=== PATIENT | male | born 1950 | race Caucasian/White ===

== ENCOUNTER 2018-12-21 14:05 | Day surgery (SDC) | payer MEDICARE, BC ==
[~2018-12-21] VITALS: Ht 180.3 cm; Wt 112.7 kg
[2018-12-21 14:12] LABS: HEMOGLOBIN 15.8 g/dL (13.5-17.5); MCH 33.3 pg (26.0-34.0); MCHC 35.1 g/dL (31.0-37.0); MCV 94.7 fL (80.0-100.0); MEAN PLATELET VOLUME 9.8 fL (7.4-10.4); RBC 4.75 10x6/uL (4.20-6.10); RDW 12.4 % (11.5-14.5); WBC 8.8 10x3/uL (4.8-10.8)
[2018-12-21] MEDS ORDERED: HCTZ25 MG (14:30)
[2018-12-21] MEDS ORDERED: COZAAR100 MG PO (14:32)
[2018-12-21] MEDS ORDERED: NORVASC5 MG PO (14:32)
[2018-12-21] MEDS ORDERED: SINGULAIR10 MG PO (14:33)
[2018-12-21] MEDS ORDERED: NEXIUM20 MG (14:34)
[2018-12-21 14:55] VITALS: BP 153/95; Ht 180.3 cm; Wt 112.7 kg
[2018-12-21] MEDS ORDERED: ZANTAC300 MG PO (16:46)
--- NOTE | 2018-12-21 17:10 | NUR ---
DISCHARGE INSTRUCTIONS REVIEWED WITH PATIENT AND SPOUSE, DISCHARGED HOME VIA WHEELCHAIR TO PRIVATE VEHICLE WITH SPOUSE
--- NOTE | 2018-12-22 12:20 | OP ---
PATIENT NAME: SULMA JEAN JR MEDICAL RECORD: [id number] :50 LOCATION:[facility] ADMISSION DATE: SURGEON: MICHELL BARRERA MD DATE OF OPERATION: 12/21/2018 REFERRING PHYSICIAN: Dr. Mary Jane Herron PROCEDURE: EGD with fecal microbial transplant. INDICATIONS: Mr. Jean is a delightful 68-year-old gentleman with history of short segment Hicks's esophagitis and colon polyps, who presents for outpatient fecal microbial transplant. He picked up a C. diff infection visiting a friend in [place]. He was first initially diagnosed with positive stool for CDT on 10/28/2017. He was initially treated with Flagyl for 10 days followed by vancomycin for 14 days and then again a repeat course of vancomycin for 14 days in November 2017 followed by vancomycin for 24 days in December 2017. He continues to have loose watery stool. He tends to have loose stools despite recurrent antibiotic treatment. He presents for outpatient fecal microbial transplant. PREMEDICATIONS: Total IV anesthesia (propofol 350 mg). INSTRUMENT: Olympus video colonoscope, pediatric. PROCEDURE AND FINDINGS: After receiving informed consent, Mr. Jean's posterior pharynx was anesthetized with Cetacaine spray, placed in left lateral decubitus position, and sedated as per anesthesia. After achieving adequate level of sedation, the colonoscope was introduced per orally and advanced into the jejunum up to 145 cm. Upper GI findings include short segment Hicks's esophagus (no biopsies on this exam), small hiatal hernia, bilious gastritis, and gastric polyps. At 145 cm into the jejunum, 60 cc of fecal microbial transplant was flushed through the colonoscope followed by 180 cc of free water flush. The colonoscope was then withdrawn. Mr. Jean tolerated the procedure well. No immediate complications. ASSESSMENT: 1. Fecal microbial transplant to the jejunum at 145 cm. 2. Bilious gastritis. 3. Gastric polyps. 4. Small hiatal hernia. 5. Short segment Hicks's. RECOMMENDATIONS: 1. Avoid antibiotics. 2. Continue probiotics. TRANSINT:[id number] Voice Confirmation ID: [id number] DOCUMENT ID: [id number] OPERATIVE REPORT [id number] SULMA JEAN JR MICHELL BARRERA MD at 1220 CC: MARY JANE HERRON [id number] DICTATION DATE: 12/21/18 1554 [facility]: 12/21/18 1837 [facility] 12/21/18 [place] [id number] [place] [id number]
== END 2018-12-21 17:10 | disposition home or self-care (01) ==
LOC: D.OPS 14:05
PROVIDERS: Anesthesiology
DX: A04.72 Enterocolitis due to Clostridium difficile, not specified as recurrent (principal); K29.60 Other gastritis without bleeding; K31.7 Polyp of stomach and duodenum; K44.9 Diaphragmatic hernia without obstruction or gangrene; K22.70 Barrett's esophagus without dysplasia; J45.909 Unspecified asthma, uncomplicated; K21.9 Gastro-esophageal reflux disease without esophagitis; I10 Essential (primary) hypertension; Z79.82 Long term (current) use of aspirin; Z79.899 Other long term (current) drug therapy; Z01.812 Encounter for preprocedural laboratory examination